=== PATIENT | male | born 1955 | race Caucasian/White ===

== ENCOUNTER 2018-07-27 11:42 | Emergency (ER) | payer OTHER ==
[~2018-07-27] VITALS: Ht 190.5 cm; Wt 99.7 kg
[2018-07-27 11:53] VITALS: BP 115/83
== END 2018-07-27 12:23 | disposition home or self-care (01) ==
LOC: ED 12:10
DX: K02.9 Dental caries, unspecified (principal)
CPT/HCPCS: 99283